=== PATIENT | female | born 1970 | race Caucasian/White ===

== ENCOUNTER 2019-10-14 16:16 | Inpatient (IN) | payer OTHER ==
[~2019-10-14] VITALS: Ht 154.9 cm; Wt 52.6 kg
[~2019-10-14 16:16] MED LIST: ASACOL HD800 MG PO; LEVOTHYROXINE50 MCG PO; OXYCODON-ACETA1 EAC2 PO; SUDAFED 12 HOU120 MG PO; ZYRTEC10 MG PO
--- NOTE | 2019-10-14 17:23 | NUR ---
NEW ADMIT TO THE FLOOR. IV STARTED IN RIGHT AC. IV BOLUS OF LR STARTED PER DOC ORDER. PT REPORTS MILD ABD PAIN, INTERMITTENT AND CRAMPING. PT REPORTS RECTAL BLEEDING WELL WITH DIARRHEA. PT A&OX4. ORIENTED PT TO ROOM AND CALL LIGHT.
--- NOTE | 2019-10-14 19:44 | NUR ---
RECEIVED REPORT FROM DAY SHIFT RN. PATIENT IS IN RESTROOM. PATIENT DENIES ANY NEEDS. CALL LIGHT IN REACH.
--- NOTE | 2019-10-14 19:57 | NUR ---
CHARGE NURSE REPORT RECEIVED NEAR 1914. PT IN BED, EYES CLOSED, FAMILY PRESENT
--- NOTE | 2019-10-14 20:20 | NUR ---
PATIENT ASSESMENT COMPLETED. BOLUS COMPLETED. PRIMARY IV FLUIDS INFUSING PER ORDER. MAG INFUSING PER ORDER. PATIENT DENIES ANY PAIN OR NAUSEA. PATIENT PROVIDED WITH BROTH PER REQUEST. FAMILY PRESENT IN ROOM. ALL QUESTIONS ANSWERED. PATIENT DENIES ANY FURTHER QUESTIONS OR CONCERNS. PATIENTS EVENING MEDICATIONS GIVEN PER ORDER. PATIENT DENIES ANY FURTHER NEEDS AT THIS TIME. CALL LIGHT IN REACH.
--- NOTE | 2019-10-14 21:09 | NUR ---
PATIENT ASSISTED TO THE RESTROOM A SBA. PATIENT WAS ABLE TO VOID AND HAVE SOFT LOOSE BM. PATIENT IS NOW BACK IN BED RESTING. POTASSIUM INFUSING PER ORDER. PATIENT DENIES ANY PAIN. NO NEEDS NOTED. CALL LIGHT IN REACH.
--- NOTE | 2019-10-14 22:12 | NUR ---
PATIENT IS RESTING IN BED. MEDICATIONS 2200 MEDICATIONS GIVEN PER ORDER. ABX AND POTASSIUM INFUSING PER ORDER. PATIENT DENIES ANY PAIN OR NAUSEA AT THIS TIME. PATIENT DENIES ANY NEEDS AT THIS TIME. CALL LIGHT IN REACH.
--- NOTE | 2019-10-14 23:27 | NUR ---
ANSWERED CALL LIGHT. 1SBA TO THE BATHROOM AND BACK TO BED. SCDS ARE BACK ON. NO OTHER NEEDS AT THIS TIME.
--- NOTE | 2019-10-15 01:52 | NUR ---
PATIENT ASSISTED TO THE RESTROOM BY TAMPER OPERATOR. PATIENT WAS ABLE TO VOID. NO BM. PATIENT IS BACK IN BED RESTING. PATIENT RATES PAIN IN HER ABD AT A 5/10. PATIENT DESCRIBES IT AN "ACHE". PATIENT GIVEN IV TYLENOL PER ORDER. VITALS TAKEN AND RECORDED BY DEZ TOMAS. PATIENTS INTAKE AND OUPUT RECORDED BY DEZ TOMAS. PATIENT DENIES ANY FURTHER NEEDS. CALL LIGHT IN REACH.
--- NOTE | 2019-10-15 02:43 | NUR ---
PATIENT IS RESTING IN BED WITH EYES CLSOED, RR 17. CALL LIGHT IN REACH.
--- NOTE | 2019-10-15 05:21 | NUR ---
PATIENT RESTED WELL THROUGHOUT THE SHIFT. PATIENT IS ON A CLEAR LIQUID DIET, TOLERATING WELL, AND NO COMPLAINTS OF NAUSEA NOTED. PATIENT IS A SBA. PATIENT HAD MULTIPLE LOOSE BMS. PATIENT IS ON CONTACT PRECATUTIONS PENDING C-DIFF LAB RESULTS. PATIENT IS ON RA. PATIENT HAS IVV INFUSING PER ORDER. PATIENT RECIEVED MAG AND POTASSIUM IV PER ORDER. PATIENT RECEIVED PRN TYLENOL X1 PRN FOR PAIN. PATIENT IS AAOX3 AND USES CALL LIGHT APPROPRIATELY.
--- NOTE | 2019-10-15 06:26 | NUR ---
PATIENT ASSISTED TO THE RESTROOM. PATIENT WAS ABLE TO VOID. PATIENT ALSO HAD LOOSE BM. PATIENTS MORNING MEDICATIONS GIVEN PER ORDER. PATIENT RATES PAIN AT A 2/10. PATIENT DENIES THE NEED FOR PAIN MEDICATION AT THIS TIME. VITALS TAKEN ADN RECORDED. INTAKE AND OUTPUT RECORDED. NO NEEDS NOTED. CALL LIGHT IN REACH.
--- NOTE | 2019-10-15 07:19 | NUR ---
REPORT RECIEVED FROM MARTA CANNON. PT AWAKE AND DENIES CONCERNS ATT. JUST FINISHED DOSE OF IV TYLENOL.
--- NOTE | 2019-10-15 08:52 | NUR ---
PT GIVEN JELLO, MORE ICE WATER AND PEPCID. PT STATES THE TYLENOL IS DOING OK WITH PAIN BUT MAYBE NEED SOMETHING ELSE SHE IS TAKING IT Q6 AND WILL RUN OUT OF LIMIT.
--- NOTE | 2019-10-15 09:00 | NUR ---
Pt. sleeping will return later or visit in am.
[2019-10-15] MEDS ORDERED: PROMETHAZINE-C473 ML PO (09:07)
--- NOTE | 2019-10-15 10:04 | NUR ---
CALLED DR WALKER REGARDING ABDOMINAL CRAMPING AFTER SMALL MORE FORMED STOOL. PT STATES THE PAIN WENT UP TO A 9 AND SHE FELT LIKE PASSING OUT. ADMINSTERED TORADOL, AND EXPLAINED TO PT.
[2019-10-15] MEDS ORDERED: SULFAZINE500 MG PO (13:31)
[2019-10-15] MEDS ORDERED: MESALAMINE DR400 MG PO (13:48)
--- NOTE | 2019-10-15 15:59 | NUR ---
PT LYING IN BED. STATES SHE FEELS A LOT BETTER. REFILLED ICE WATER. PLUGGED IN IV.
--- NOTE | 2019-10-15 17:32 | HP ---
[facility] [address], [place] [address] Signed ADMISSION DATE: 10/14/2019 REASON FOR ADMISSION: Ulcerative colitis and flare. HISTORY OF PRESENT ILLNESS: This 49-year-old white woman is well known to me from the past. She carries a longstanding diagnosis of ulcerative colitis, generally well managed with minimal intervention. Indeed, she last underwent colonoscopy by me on July 08, 2019, where she was found to have only proctitis, no evidence of generalized colitis. Pathology report confirmed mucosal edema at the cecum, right colon, transverse colon, and minimally active chronic colitis of the sigmoid and rectum. She had benefitted mainly from mesalamine 1.2 g daily in the past, but the patient had self tapered regarding her medications previously and recommendation was made to maintain mesalamine. The patient did not do so as the cost of mesalamine was rather prohibitive, more than 500 dollars a month. On that basis, a plan was outlined for azulfidine to be given, and she was cautioned by her pharmacist that it does contain sulfa and she is considered to have a sulfa allergy. The sulfa allergy predominantly was that of lower extremity rash, but no airway problems or anything else of that sort. She has seen on an urgent walk-in basis today, October 14, 2019, having had fekg-cnv-m-half of progressive inability to tolerate oral intake, lower abdominal pain and cramping, and gross blood per rectum. I conferred with pharmacist at the hospital regarding her ability to initiate azulfidine despite a prior low-grade reaction to Bactrim antibiotic more than seven years ago and a planned trial for the medication was outlined. At present, the patient is really not able to eat well at all. Has only been able to have Jell-O even during Thanksgiving several days ago, has been lightheaded, dizzy, and so on. She has not had nausea or vomiting, continues to have blood per rectum. She has a fair amount of lower abdominal pain as well. SOCIAL HISTORY: She is . She has two children, ages 16 and 12. She does a fair amount of weightlifting. She is . She lives in [place]. PAST MEDICAL HISTORY: Does include partial thyroidectomy for thyroid nodule (benign) and ulcerative colitis as described. Electronically Signed By: CARMELINA WALKER MD 10/15/19 1732 PATIENT NAME: JUAN CAMPUZANO HISTORY AND PHYSICAL DATE OF : 74 REPORT #: [id number] PHYSICIAN: CARMELINA WALKER MD PCP: CIELO MIRELES REPORT IS CONFIDENTIAL AND NOT TO BE RELEASED WITHOUT AUTHORIZATION [facility] [address], [place] [address] Signed REVIEW OF SYSTEMS: She denies any shortness of breath or chest pain. Does have lower abdominal pain and blood per rectum as described as well as diarrhea. She is thirsty and lightheaded, unable to tolerate oral intake. PHYSICAL EXAMINATION: GENERAL: A pleasant white woman, who looks to be in moderate distress at this time. VITAL SIGNS: Temperature is 99.8, pulse 125, blood pressure 100/78. NECK: Shows no thyromegaly or cervical adenopathy. Trachea is midline. Well-healed incision is noted on the neck. EYES: Mucous membranes are quite dry including her tongue. CHEST: Clear. There is no wheeze. HEART: Regular without murmur. ABDOMEN: Nondistended and generally soft. There is no focal tenderness. No tenderness in the right lower quadrant. EXTREMITIES: Show no clubbing, cyanosis, or edema. ASSESSMENT: The patient clearly has ulcerative colitis in flare. She may have other competing etiologies including infectious diarrhea and so forth. She is dehydrated and has poor ability to tolerate oral intake. She clearly needs to be admitted to the hospital. PLAN: We would directly admit to the hospital for fluid resuscitation, administration of hydrocortisone intravenously, antibiotics, and assessment of stool for pathogens. We will obtain lab studies as well. A transition to azulfidine if possible will be undertaken and medical observation in addition to reconciling her acute flare of colitis. Colonoscopy may additionally be required to assess the level of her inflammation as previously in June, it was only the rectum really, more proximal colon spared. She agrees with this approach. MD SONALI Forte/MODL /[id number] Electronically Signed By: CARMELINA WALKER MD 10/15/19 1732 PATIENT NAME: JUAN CAMPUZANO HISTORY AND PHYSICAL DATE OF : 74 REPORT #: [id number] PHYSICIAN: CARMELINA WALKER MD PCP: CIELO MIRELES REPORT IS CONFIDENTIAL AND NOT TO BE RELEASED WITHOUT AUTHORIZATION [address] [address] Signed cc: ILENE Gloria Copies: CIELO MIRELES ~ Electronically Signed By: CARMELINA WALKER MD 10/15/19 1732 PATIENT NAME: JUAN CAMPUZANO HISTORY AND PHYSICAL DATE OF : 74 REPORT #: [id number] PHYSICIAN: CARMELINA WALKER MD PCP: CIELO MIRELES REPORT IS CONFIDENTIAL AND NOT TO BE RELEASED WITHOUT AUTHORIZATION
--- NOTE | 2019-10-15 17:33 | NUR ---
PATIENT IN BED RESTING, FAMILY IN ROOM. FRESH WATER GIVEN. CALL LIGHT IN REACH. NO FURTHER NEEDS AT THIS TIME.
--- NOTE | 2019-10-15 19:10 | NUR ---
CHARGE NURSE REPORT RECEIVED. NO NEEDS AT THIS TIME.
--- NOTE | 2019-10-15 19:10 | NUR ---
IN ROOM FOR REPORT, PT IS AWAKE IN BED AND DENIES NEEDS AT THIS TIME. CALL LIGHT IS CLOSE.
--- NOTE | 2019-10-15 19:20 | NUR ---
THIS RN ASSISTING WITH IV START. PIV STARTED PER PROTOCOL, BLOOD RETURN NOTED WITH IV START. MAGNESIUM INFUSION STARTED THROUGH NEW LINE. PIV IN RAC DC'D PER PROTOCOL. GAUZE AND COBAN APPLIED. WARM BLANKET TO INFILTRATED LINE. NO ADDITIONAL REQUESTS OR COMPLAINTS AT THIS TIME. CALL LIGHT WITHIN REACH.
--- NOTE | 2019-10-15 20:28 | NUR ---
IN ROOM TO ADMINISTER MEDICATIONS AND ASSESS PT. SHE DENIES PAIN AT THIS TIME. SCDS ARE ON AND NEW IV IS INFUSING FINE. CALL LIGHT IS CLOSE.
--- NOTE | 2019-10-15 20:40 | NUR ---
PT COMPLAINED OF PAIN IN IV FROM POTASSIUM. TURNED RATE DOWN AND WILL SEE IF IT IMPROVES.
--- NOTE | 2019-10-15 23:00 | NUR ---
IN ROOM TO START FLAGYL AND ADMINISTER SOLUCORTEF. PT IS NOW RESTING WITH EYES CLOSED AND CALL LIGHT IS CLOSE.
--- NOTE | 2019-10-16 00:36 | NUR ---
PT IS RESTING WITH EYES CLOSED, RR IS EVEN AND NONLABORED. CALL LIGHT IS WITHIN REACH AND IV IS INFUSING FINE.
--- NOTE | 2019-10-16 01:32 | NUR ---
ANSWERED CALL LIGHT. SBA TO THE BATHROOM. PATIENT IS BACK IN BED.
--- NOTE | 2019-10-16 01:35 | NUR ---
PT IS AWAKE IN BED AFTER JUST GETTING UP TO THE RESTROOM. SHE DENIES ANY REACTION TO THE AZULFIDINE TAKEN IN THE EVENING. SHE DENIES OTHER NEEDS AT THIS TIME WELL AND IS NPO FOR THE SCOPE. CALL LIGHT IS CLOSE.
--- NOTE | 2019-10-16 04:29 | NUR ---
PT IS RESTING WITH EYES CLOSED, RR IS EVEN AND NONLABORED. IV IS INFUSING FINE AND CALL LIGHT IS CLOSE.
--- NOTE | 2019-10-16 06:46 | NUR ---
IN ROOM TO ADMINISTER MORNING MEDS. SHE DENIES PAIN AT THIS TIME. SBA TO RESTROOM AND BACK TO BED. CALL LIGHT IS CLOSE.
--- NOTE | 2019-10-16 06:47 | NUR ---
PT DENIED PAIN THROUGH THE NIGHT. SHE AMBULATES SBA. SHE REPORTS SOME BLOOD IN HER BMS BUT STATES IT IS GETTING BETTER. SHE ALSO REPORTS HAVING AN APPETITE. SHE IS NPO SINCE MIDNIGHT AND IS SCHEDULED FOR A SCOPE TODAY. D5LR IS INFUSING AT 125MLS/HR
--- NOTE | 2019-10-16 07:27 | NUR ---
0710: Bedside report recieved from Nayeli LOZANO. PT talking on the phone at this time. Call borden within reach.
--- NOTE | 2019-10-16 07:44 | NUR ---
PT RESTING IN HER BED AND SHE IS READY TO GO FOR HER COLONOSCOPY. SHE DENIES ANY PAIN OR NAUSEA AT THIS TIME. SHE STATES THAT HER BM THIS AM HAD A SMALL AMOUNT OF BLOOD IN HER STOOL, BUT STATES IT IS LESS THAN IT HAS BEEN.
--- NOTE | 2019-10-16 08:43 | NUR ---
10/16/19 0843 Laure Husain 0820-PATIENT ARRIVED TO PACU ON 2L NC DROWSY AROUSES TO VERBAL STIMULI LAYING LEFT LATERAL. ABDOMEN SOFT ENCOURAGED TO PASS GAS. PATIENT DENIES PAIN OR NAUSEA. PATIENT DOZES BACK TO SLEEP. RR EVEN.
--- NOTE | 2019-10-16 09:22 | NUR ---
0915: Pt returned to her room from PACU. Resport recieved from Laure LOZANO. Pt states she is doing well other than some slight cramping. Pt encouarged to try and pass the air from her colon which she states understanding. VSS. Pt's spouse into her room at this time.
--- NOTE | 2019-10-16 10:25 | NUR ---
PT JUST RETURNED TO HER BED FROM THE BR AND WAS STEADY ON HER FEET.
--- NOTE | 2019-10-16 11:24 | NUR ---
PATIENT NOW ON A LOW-FIBER DIET. STOPPED IN TO PROVIDE A QUICK REVIEW. SHE NORMALLY LIKES FRESH FRUITS AND VEGETABLES BUT HAS NOT BEEN ABLE TO TOLERATE MUCH THE PAST 3 WEEKS DUE TO [facility] FLARE. EXPLAINED THAT LOW-FIBER FOODS WILL PROVIDE LESS BULK TO ALLOW THE INTESTINES TO RECOVER A BIT. SHE HAS A HANDOUT ALREADY IN HER ROOM. PROVIDED A LOW-FIBER MENU FOR HER WHILE HERE. PROVIDED BY NAME AND OFFICE NUMBER IN CASE FURTHER QUESTIONS ARISE.
--- NOTE | 2019-10-16 12:07 | NUR ---
Pt resting in her bed and she states her pain is well controled and she tolerated her toast well and denies any new problems.
--- NOTE | 2019-10-16 13:02 | NUR ---
Pt continues resting in bed with no new complaints and is visiting with her . Pastor Fernandez now in the room speaking with the pt.
--- NOTE | 2019-10-16 13:48 | NUR ---
PT ALERT, ORIENTED AND RESTING IN BED WITH HER CRISPIN. PT ADMITTED THAT SHE HAS DEALT WITH COLITIS FOR YEARS, BUT THIS SEEMS TO BE THE WORST SO FAR. PT WAS ABLE TO HAVE TOAST EARLIER AND HOPING IT WILL STAY DOWN SO SHE CAN BE DC'D TODAY. VISITED WITH PT AND , GOOD DISCUSSION ABOUT TRYING TO ONLY FOCUSING ON WHAT WE CAN CONTROL AND LETTING THE OTHER STAFF GO. PT REQUESTED LANA, MARTA WESTBROOK WAITING TO VISIT WITH PT. GAVE PT A G.POST AND ROXANNE. I WILL FOLLOW NEEDED
--- NOTE | 2019-10-16 15:21 | NUR ---
PT RESTING IN HER BED VISITING WITH HER SPOUSE. SHE DENIES ANY PAIN OR PROBLEMS AT THIS TIME. SCD'S ON AND RUNNING AND CALL RUTH WITHIN REACH.
--- NOTE | 2019-10-16 15:56 | NUR ---
In to speak with Akanksha and her . She states she has had 3 flares of colitis since May. She works as a truck payroll and benefits analyst. Plans on going home with spouse on discharge. Denies need for DME. Was concerned about new diet of low fiber. Reviewed with pt and notified Concha riverboat captain. Concha will see Akanksha.
--- NOTE | 2019-10-16 16:05 | NUR ---
Pt in the br at this time, her spouse remains in the room and states that the pt is doing well with no new problems.
--- NOTE | 2019-10-16 17:22 | NUR ---
Pt resting in her bed and she continues to denie any problems or reactions related to her medications.
--- NOTE | 2019-10-16 18:41 | NUR ---
PT DENIES ANY PROBLEMS AND IS GETTING READY FOR A SHOWER AT THIS TIME WITH THE HELP FROM THE DECK SPECIALIST.
--- NOTE | 2019-10-16 19:27 | NUR ---
IN ROOM FOR REPORT, PT IS AWAKE IN BED AFTER FINISHING A SHOWER. SHE DENIES NEEDS AT THIS TIME. CALL LIGHT IS CLOSE.
--- NOTE | 2019-10-16 21:37 | NUR ---
IN ROOM TO ASSESS PT AND ADMINISTER MEDS. PT DENIES PAIN AT THIS TIME BUT STATES SHE HAS SOME CRAMPING AFTER USING THE RESTROOM. VS ARE WNL AND I&0S ARE GOOD. SHE REPORTS BLOOD IN HER STOOL WHICH HAS IMPROVED. SHE DENIES NEEDS AT THIS TIME. CALL LIGHT IS CLOSE.
--- NOTE | 2019-10-16 23:51 | NUR ---
PT IS RESTING WITH EYES CLOSED, RR IS EVEN AND NONLABORED. CALL LIGHT IS CLOSE.
--- NOTE | 2019-10-17 01:29 | NUR ---
ASSISTED BACK TO BED FROM RESTROOM. SHE HAD SOME MORE BLOODY LOOSE STOOL, SHE REPORT SOME CRAMPING PAIN BUT STATES IT GOES AWAY ON IT'S OWN. SHE DENIES FURTHER NEEDS AT THIS TIME. CALL LIGHT IS CLOSE.
--- NOTE | 2019-10-17 03:45 | NUR ---
PT UP TO THE RESTROOM AND BACK TO BED. SMALL AMOUNT OF LIQUID STOOL WITH BLOOD NOTED IN TOILET. NEW IV BAG IS INFUSING AND PT DENIES NEEDS AT THIS TIME. CALL LIGHT IS CLOSE.
--- NOTE | 2019-10-17 05:02 | NUR ---
PT DENIED PAIN THROUGH THE NIGHT WITH THE EXCEPTION OF SOME CRAMPING AFTER HAVING BMS. SHE CONTINUES TO HAVE SOME BLOOD IN HER STOOL AND HAD COUPLE OF BMS THROUGH THE NIGHT. SHE AMBULATES SBA/IND. SHE IS TOLERATING A LOW FIBER DIET. SHE HAS D5LR INFUSING AT 125MLS/HR.
--- NOTE | 2019-10-17 06:18 | NUR ---
IN ROOM TO ADMINISTER SOLUCORTEF. PT DENIES PAIN AND ANY NEEDS AT THIS TIME. CALL LIGHT IS CLOSE AND IV IS INFUSING FINE.
--- NOTE | 2019-10-17 07:20 | NUR ---
REPORT RECIEVED FROM ELECTRON GUN ASSEMBLER RN. PT IN BED AWAKE. DENIES PAIN OR NEEDS. CALL LIGHT IN REACH.
--- NOTE | 2019-10-17 08:45 | NUR ---
ASSESSMENT COMPLETED. LUNGS CLEAR. BOWEL TONES HYPERACTIVE. PT DENEIS ABDOMINAL DISCOMFORT OR PAIN. 1 BM THIS AM, STILL WITH SOME REDNESS. PT REPORTS SOME CRAMPING AFTER BOWEL MOVEMENTS BUT REPORTS SHE IS FEELING "MUCH BETTER".CALL LIGHT IN REACH. DENIES FURTHER NEEDS.
--- NOTE | 2019-10-17 09:20 | NUR ---
IV SITE INFILTRATED. DR WALKER NOTIFIED. ORDERS TO DC. OKAY TO LEAVE NO IV ACCESS. CATH INTACT. PT TOLERATED WELL.
--- NOTE | 2019-10-17 12:40 | NUR ---
PT OUT AMBULATING THE HALLS INDEPENDENTLY. KOKI HANNA.
--- NOTE | 2019-10-17 13:28 | NUR ---
PT AMBULATING IN HALLWAY WITH CRISPIN, WAITING FOR DC LATER THIS PM. SHE IS FEELING BETTER, GAVE A BLESSING, WILL FOLLOW NEEDED
--- NOTE | 2019-10-17 16:43 | NUR ---
PT UP IN CHAIR. MEDICATIONS GIVEN. DENEIS PAIN/NAUSEA. UP AMBULATING WELL. REPORTS DIARRHEA HAS DECREASED WELL PAIN. DENIES NEEDS. CALL LIGHT IN REACH.
[2019-10-17] MEDS ORDERED: TYLENOL EXTRA500 MG PO (17:11)
[2019-10-17] MEDS ORDERED: SULFASALAZINE500 MG PO (17:11)
[2019-10-17] MEDS ORDERED: METRONIDAZOLE250 MG PO (17:11)
[2019-10-17] MEDS ORDERED: PREDNISONE20 MG PO (17:12)
[2019-10-17] MEDS ORDERED: PROTONIX40 MG PO (17:13)
--- NOTE | 2019-10-17 17:45 | NUR ---
DR WALKER IN TO ROUND ON PT. PLAN OF CARE DISCUSSED..
--- NOTE | 2019-10-17 18:00 | NUR ---
DISCHARGE INSTRUCTIONS PROVIDED. PT WITH NO QUESTIONS. CHIP IN TO DISCUSS NEW MEDICATIONS.
--- NOTE | 2019-10-18 13:49 | PATH ---
[facility] [address] [place], [place] [address] Signed SPECIMEN(S): A TRANSVERSE SPECIMEN(S): B SPLENIC FLEXURE SPECIMEN(S): C SIGMOID SPECIMEN(S): D COLON POLYP AT 30 CM SPECIMEN(S): E RECTUM SPECIMEN SOURCE: A. TRANSVERSE B. SPLENIC FLEXURE C. SIGMOID D. COLON POLYP AT 30 CM E. RECTUM CLINICAL HISTORY: Colitis. Post-op: Severe ulcerative colitis. MICROSCOPIC DESCRIPTION: Histologic sections of all submitted blocks are examined by light microscopy. These findings, together with the gross examination, support the pathologic diagnosis. FINAL PATHOLOGIC DIAGNOSIS: A. Transverse colon, biopsy: - Mild chronic active colitis, negative for dysplasia. B. Splenic flexure, biopsy: - Mild chronic active colitis, negative for dysplasia. C. Sigmoid colon, biopsy: - Moderate chronic active colitis, negative for dysplasia. D. Colon polyp at 30 cm, biopsy: - Moderate chronic active colitis, negative for dysplasia. E. Rectum, biopsy: - Mild to moderate chronic active colitis, negative for dysplasia. COMMENT: The histologic features are consistent with the history of inflammatory bowel disease (ulcerative colitis). JVR:[facility]:C2NR GROSS DESCRIPTION: Five specimens are received in five containers, labeled "JL." A. The specimen, labeled "JL, #1," is received in formalin and consists of two troncoso soft tissue fragments that measure 0.2 and 0.3 cm in greatest dimension. PATIENT NAME: JUAN CAMPUZANO PATHOLOGY DATE OF : 74 REPORT #: [id number] PHYSICIAN: CHIRAG CARDONA PCP: CIELO MIRELES REPORT IS CONFIDENTIAL AND NOT TO BE RELEASED WITHOUT AUTHORIZATION [facility] [address] [place], [place] [address] Signed The specimen is entirely submitted in cassette (A1). B. The specimen, labeled "JL, #2," is received in formalin and consists of one troncoso soft tissue fragment that measures 0.3 cm in greatest dimension. The specimen is entirely submitted in cassette (B1). C. The specimen, labeled "JL, #3," is received in formalin and consists of three troncoso soft tissue fragments that measure 0.3-0.4 cm in greatest dimension. The specimen is entirely submitted in cassette (C1). D. The specimen, labeled "JL, #4," is received in formalin and consists of two troncoso soft tissue fragments that measure 0.1 and 0.4 cm in greatest dimension. The specimen is entirely submitted in cassette (D1). E. The specimen, labeled "JL, #5," is received in formalin and consists of two troncoso soft tissue fragments that measure 0.3 and 0.3 cm in greatest dimension. The specimen is entirely submitted in cassette (E1). FB (under the direct supervision of a pathologist) The Gross Description was prepared using a voice recognition system. The report was reviewed for accuracy; however, sound-alike word errors, addition and/or deletions may occur. If there is any question about this report, please contact Client Services. PERFORMING LABORATORY: The technical component was performed by [facility], [address] [place] [id number] (Engineering And Scientific Programmer: Meeta Wagner MD; CLIA# [id number]). Professional interpretation was performed by [facility], [place] [address] (Engineering And Scientific Programmer: Ramses Quintero M.D.). Diagnostician: Ramses Quintero MD Pathologist Electronically Signed 10/18/2019 Copies: ~ PATIENT NAME: JUAN CAMPUZANO [facility] DATE OF : 74 REPORT #: [id number] PHYSICIAN: CHIRAG CARDONA PCP: CIELO MIRELES REPORT IS CONFIDENTIAL AND NOT TO BE RELEASED WITHOUT AUTHORIZATION
--- NOTE | 2019-10-18 16:20 | OR ---
[facility] [address], [place] [address] Signed DATE OF OPERATION: 10/16/2019 SURGEON: Carmelina Walker MD PREOPERATIVE DIAGNOSIS: Ulcerative colitis and flare. POSTOPERATIVE DIAGNOSIS: Ulcerative colitis and flare. PROCEDURE: Colonoscopy beyond splenic flexure with biopsies. ANESTHESIA: Intravenous sedation, fentanyl 150 mcg, Versed 7 mg. INDICATION: This 49-year-old white woman is a patient of ILENE Gloria, and well known to me from the past. She is known to have a longstanding history of ulcerative colitis. She has been maintained with mesalamine in the past and tapered herself off medication over time and has been doing relatively well. 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 With sparing of the colon proximally and biopsies affirming that. More proximal colon did have edema, however. She was prescribed mesalamine suppository, which was of no benefit and mesalamine orally administered was prescribed. However, she did not fill it as it was prohibitively expensive at over $500 a month. She recently, in the past 2 weeks, has had progressive symptoms of diarrhea, blood per rectum, dehydration, and so forth. She was directly admitted from my office on October 14, 2019, underwent aggressive fluid resuscitation, administration of IV steroids, IV Flagyl, electrolyte correction, including that of hypokalemia and is improved. Initiation of azulfidine has been undertaken despite a sulfa allergy and she thus far has shown no sign of cross-reactivity or allergic symptoms from that. She is feeling much better. She is admitted at this time to undergo colonoscopy to assess the severity and extent of colitis. She understands as does her the risks of bleeding, infection, perforation, and so on. FINDINGS: Severe colitis was noted. This included the rectum, sigmoid, left colon, and markedly less and improved and nearly normal-appearing transverse colon. The mucosa was denuded in the sigmoid in patches with pseudopolyp formation as well. Electronically Signed By: CARMELINA WALKER MD 10/18/19 1620 PATIENT NAME: JUAN CAMPUZANO OPERATIVE REPORT DATE OF : 74 REPORT #: [id number] PHYSICIAN: CARMELINA WALKER MD PCP: CIELO MIRELES REPORT IS CONFIDENTIAL AND NOT TO BE RELEASED WITHOUT AUTHORIZATION [facility] [address], [place] [address] Signed DESCRIPTION OF PROCEDURE: The patient was brought to the endoscopy suite and placed in lateral decubitus position. She was given intravenous sedation to the point of slurred speech and nystagmus with full cardiopulmonary monitoring. Digital rectal examination showed residual liquid gelatinous type stool. A formal bowel prep had not been undertaken. The Olympus video colonoscope was passed in the rectum and with irrigation, mucosa could be evaluated showing ulcerations and marked inflammatory change and edema. With careful manipulation, the scope was advanced throughout the sigmoid showing marked inflammatory changes, pseudomembranes, and so on. Notably, C difficile had already been assessed and was negative. The scope was advanced beyond the splenic flexure of the transverse colon where normal-appearing mucosa was noted. Biopsies were taken there and further advancement of scope was not possible due to obstructing stool in the right transverse colon. Having the information needed, the scope was then withdrawn and examination allowed for further examination of the mucosa. Denuded mucosa was noted especially in the left and sigmoid area with pseudopolyp formation. One personal service representative pseudopolyp was biopsied. Biopsies were taken throughout the colon including the rectum. The scope was removed. The patient was taken to recovery room in good condition. CONCLUDING DIAGNOSIS: Ulcerative colitis and flare, severe. PLAN: We will continue steroids and transition to oral formulations. Continue with azulfidine, which is affordable for her. Advance to a full liquid low-fiber diet. Maintain Flagyl. MD SONALI Forte/JENSENL /[id number] cc: ILENE Gloria Copies: CIELO MIRELES Electronically Signed By: CARMELINA WALKER MD 10/18/19 1620 PATIENT NAME: JUAN CAMPUZANO OPERATIVE REPORT DATE OF : 74 REPORT #: [id number] PHYSICIAN: CARMELINA WLAKER MD PCP: CIELO MIRELES REPORT IS CONFIDENTIAL AND NOT TO BE RELEASED WITHOUT AUTHORIZATION [facility] [address] [place] [address] [place], [place] [address] Signed ~ Electronically Signed By: CARMELINA WALKER MD 10/18/19 1620 PATIENT NAME: TATIANNATASIAJUAN CAYDEN OPERATIVE REPORT DATE OF : 74 REPORT #: [id number] PHYSICIAN: CARMELINA WALKER MD PCP: CIELO MIRELES [facility] REPORT IS CONFIDENTIAL AND NOT TO BE RELEASED WITHOUT AUTHORIZATION
--- NOTE | 2019-10-18 16:20 | DS ---
[facility] [address] [place], [place] [address] Signed ADMISSION DATE: 10/14/2019 DISCHARGE DATE: 10/17/2019 REASON FOR ADMISSION: This 49-year-old white woman, who is well known to me from the past and carries a longstanding diagnosis of ulcerative colitis. Generally well managed with minimal intervention. She last underwent colonoscopy by me on July 08, 2019. She is found only to have a flare of proctitis. No evidence of generalized colitis. Pathology report confirmed mucosal edema at the cecum, right colon, transverse colon, and minimally active chronic colitis of sigmoid and rectum. She generally had benefited mainly from mesalamine use in the past, but the patient self tapered regarding her medication as she was unable to afford it costing nearly $500 a month. A plan was outlined for a sulfadine to be given, but she was cautioned by a pharmacist that did contain sulfa medication, she did not start that either. She was seen on an urgent walk-in basis on 10/14 in my office having a week and a half of progressive inability to tolerate oral intake, lower abdominal pain, cramping, gross blood per rectum. Clinical examination showed her to be quite dehydrated and highly probable to have an acute flare of colitis and on that basis, it was a direct admit for further management in the hospital. PERTINENT PHYSICAL EXAMINATION: GENERAL: Showed a pleasant white woman, who looked to be in moderate distress. VITAL SIGNS: Temperature is 99.8, pulse 125, blood pressure 100/78. NECK: Showed no thyromegaly or cervical adenopathy. Trachea is midline. Mucous membranes are quite dry including the tongue. HEART: Regular without murmur. ABDOMEN: Nondistended, generally soft. There is no focal tenderness. EXTREMITIES: Show no clubbing, cyanosis, or edema. HOSPITAL COURSE: The patient was admitted and lab studies obtained, which included a white count noted to be 10.7, hematocrit of 39.3, platelet count of 441,000. Additionally, electrolytes showed a potassium is 2.7, chloride of 94, creatinine of 0.78, and a C-reactive protein of 160. Albumin was low at 2.7. Amylase normal at 14. She was started on intravenous steroid hydrocortisone, gastric protection with Prevacid intravenously administered in DVT prophylaxis given the increased risk of deep venous thrombosis in patients with inflammatory bowel disease. Fluid resuscitation was aggressive and electrolyte repletion undertaken as well. She did have improvement, but still had some blood per rectum. Lab studies were obtained of the stool to assess for Electronically Signed By: CARMELINA WALKER MD 10/18/19 1620 PATIENT NAME: JUAN CAMPUZANO DISCHARGE SUMMARY DATE OF : 74 REPORT #: [id number] PHYSICIAN: CARMELINA WALKER MD PCP: CIELO MIRELES REPORT IS CONFIDENTIAL AND NOT TO BE RELEASED WITHOUT AUTHORIZATION [address] [address] Signed infectious causes including stool for white cells, which was quite elevated and ova and parasites, which was negative. C difficile determination was negative. On the basis of her clinical findings being far worse than had that she had last summer, she did undergo colonoscopy on a non-prepped bowel, this demonstrated quite severe ulcerative colitis of the rectum, sigmoid, left colon, but much improvement of the transverse colon consistent with clinical history. She was transitioned to oral steroids prednisone 40 mg daily, continue with a Silvadene, which was initiated under observation without adverse effect despite prior sulfa allergy and maintain with gastric protection measures. Additionally, she had been given Flagyl intravenously and was transitioned to oral Flagyl during course of hospitalization. She was advanced in her diet to a low-fiber diet, which she tolerated well. By the time of discharge, she is markedly improved with the current regimen. Additionally, lab study showed her C-reactive protein to have decreased to 23.1, which is a remarkable improvement. Our plan outlined going forward will be prednisone 40 mg daily for two weeks, tapering 10 mg weekly, continued use of a Silvadene 500 mg p.o. q.i.d., Protonix 40 mg p.o. daily, Flagyl 250 p.o. t.i.d. x5 days, and Tylenol 1000 mg p.o. q.6 hours as needed for pain. FOLLOWUP PLAN: She is return to see me in approximately a month. We will organize further management from there. DISCHARGE DIAGNOSES: 1. Ulcerative colitis in flare (severe). 2. Status post colonoscopy with biopsy marked and severe ulcerative colitis, rectum, sigmoid left colon with sparing of transverse colon and proximal. 3. History of partial thyroidectomy for thyroid nodule (benign). MD SONALI Forte/MODL /[id number] Electronically Signed By: CARMELINA WALKER MD 10/18/19 1620 PATIENT NAME: JUAN CAMPUZANO DISCHARGE SUMMARY DATE OF : 74 REPORT #: [id number] PHYSICIAN: CARMELINA WALKER MD PCP: CIELO MIRELES REPORT IS CONFIDENTIAL AND NOT TO BE RELEASED WITHOUT AUTHORIZATION [facility] [address] [place] [address] Signed cc: ILENE Gloria Copies: CIELO MIRELES ~ Electronically Signed By: CARMELINA WALKER MD 10/18/19 1620 PATIENT NAME: JUAN CAMPUZANO DISCHARGE SUMMARY DATE OF : 74 REPORT #: [id number] PHYSICIAN: CARMELINA WALKER MD PCP: CIELO MIRELES REPORT IS CONFIDENTIAL AND NOT TO BE RELEASED WITHOUT AUTHORIZATION
== END 2019-10-17 18:00 | disposition home or self-care (01) | DRG 387 ==
LOC: MS 16:16
PROVIDERS: ADMIT Surgery
PROC: 0DBL8ZX Excision of Transverse Colon, Via Natural or Artificial Opening Endoscopic, Diagnostic (ICD-10-PCS; 2019-10-16)
PROC: 0DBN8ZX Excision of Sigmoid Colon, Via Natural or Artificial Opening Endoscopic, Diagnostic (ICD-10-PCS; 2019-10-16)
PROC: 0DBP8ZX Excision of Rectum, Via Natural or Artificial Opening Endoscopic, Diagnostic (ICD-10-PCS; principal; 2019-10-16 08:00)
DX: K51.50 Left sided colitis without complications (principal); E86.0 Dehydration; E87.6 Hypokalemia; Z79.899 Other long term (current) drug therapy; Z88.2 Allergy status to sulfonamides; Z88.0 Allergy status to penicillin; Z88.1 Allergy status to other antibiotic agents
CPT/HCPCS: 36415; 80048; 80053; 82150; 82247; 82465; 83615; 83735; 84100; 84478; 84550; 85025; 86140; 87177; 87205; 87209; 87493; 99153; G0500; J0131; J1720; J1885; J2250; J3010; J3475; J3480; J7060; J7121; J7512

== ENCOUNTER 2024-03-04 07:00 | Day surgery (SDC) | payer OTHER ==
[~2024-03-04] VITALS: Ht 154.9 cm; Wt 57.7 kg
[~2024-03-04 07:00] MED LIST changes: +IBLOOD GLUCOSE TEST STRIP 1 EA TEST VI PRN; +LACTATED RINGER'S 1,000 ML IV SCH; +LIDOCAINE HCL 1% 5 ML SDV INJ ONE; +MESALAMINE DR400 MG PO; +METRONIDAZOLE250 MG PO; +MIDAZOLAM HCL 5 MG/5 ML VIAL IV PRN; +PREDNISONE20 MG PO; +PROMETHAZINE-C473 ML PO; +PROTONIX40 MG PO; +SULFASALAZINE500 MG PO; +SULFAZINE500 MG PO; +TYLENOL EXTRA500 MG PO; +fentaNYL citrate 100 MCG/2 ML VIAL IV PRN
[2024-03-04 07:19] VITALS: BP 123/71
[2024-03-04] MEDS ORDERED: PROBIOTIC250 MG PO (07:33)
[2024-03-04] MEDS ORDERED: MESALAMINE DR400 MG PO (07:33)
[2024-03-04] MEDS ORDERED: fentaNYL citrate 100 MCG/2 ML VIAL ONE ×2 (08:12→08:33)
[2024-03-04] MEDS ORDERED: MIDAZOLAM HCL 5 MG/5 ML VIAL ONE ×2 (08:13→08:37)
--- NOTE | 2024-03-04 08:58 | NUR ---
03/04/24 0858 Opal Murray 0854- PT ARRIVES TO PACU AWAKE AND TALKING. RESP EVEN AND UNLABORED. OXYGEN SAT HIGH 90'S TO 100% ON 2L VIA CO2 NC. PT REPORTS NO PAIN OR NAUSEA. PT FALLS TO SLEEP EASILY WHEN NOT BEING TALKED TO. 0857- PT PASSING FLATUS.
[2024-03-04 09:19] VITALS: BP 115/78
--- NOTE | 2024-03-05 08:37 | OR ---
[facility] [address], [place] [address] Signed DATE OF OPERATION: 03/04/2024 SURGEON: Carmelina Walker MD PREOPERATIVE DIAGNOSIS: Longstanding history of ulcerative colitis (diagnosis 2000). POSTOPERATIVE DIAGNOSES: [id number] inflammatory changes of sigmoid and rectum with probable pseudo polyps of sigmoid. PROCEDURES: 1. Total colonoscopy to cecum with random biopsies. 2. Cold morcellation polypectomy x4 at sigmoid. ANESTHESIA: Intravenous sedation; fentanyl 150 mcg and Versed 6 mg. INDICATION: This 53-year-old white woman is a patient of ILENE Gloria. She is known to me from the past having been diagnosed with ulcerative colitis in 2000. Currently is on a regimen of mesalamine 400 mg p.o. b.i.d. (800 mg total), which keeps her symptoms in good control. In general terms, she maintains excellent health otherwise. She last underwent colonoscopy in 2019 at time of flare of her ulcerative colitis. She is admitted at this time to undergo surveillance colonoscopy, understand the risk of bleeding, infection, and perforation. FINDINGS: The prep was quite good. Complete colonoscopy was undertaken of the cecum without question. Appendiceal orifice was easily identified. There appeared to be no significant inflammation of the colon down to the mid descending colon. The sigmoid and rectum had mild inflammatory change and probable pseudopolyps of the sigmoid which were excised. There were no other findings of note. PROCEDURE IN DETAIL: The patient was brought to the endoscopy suite and placed in the lateral decubitus position given intravenous sedation to the point of slurred speech and nystagmus. Digital rectal examination was normal. An Olympus video colonoscope was passed in the rectum and manipulated throughout the Electronically Signed By: CARMELINA WALKER MD 03/05/24 0837 PATIENT NAME: JUAN CAMPUZANO OPERATIVE REPORT DATE OF : 74 REPORT #: [id number] PHYSICIAN: CARMELINA WALKER MD PCP: CIELO MIRELES REPORT IS CONFIDENTIAL AND NOT TO BE RELEASED WITHOUT AUTHORIZATION [facility] [address], [place] [address] Signed colon noting inflammatory changes, which were mild of the rectum and sigmoid. There were pseudopolyps of the sigmoid. The scope was advanced ultimately to the cecum. The ileocecal valve and appendiceal orifice were normal. The mucosa of the cecum appeared essentially normal. Biopsies were taken of the cecum as well as the hepatic flexure upon withdrawal of scope and the left colon as well. Upon entry to the sigmoid were the polypoid lesions, which were most likely pseudopolyps from past inflammatory changes. These were largely excised with cold morcellation technique, four in total were removed. There were several more. Further withdrawal allowed for biopsy of the rectum which continued to show mild inflammatory change. The scope was removed. The patient was taken to recovery room in good condition. CONCLUDING DIAGNOSIS: Minimal inflammatory changes of sigmoid and rectum, probable pseudopolyps of sigmoid and more proximal colon normal. PLAN: Would recommend continue with mesalamine 400 mg p.o. b.i.d., which appears to clinically hold her symptoms in check. We will have her see us back in one year or sooner if she should have a flare or other problems. Carmelina Walker MD JM/MODL /[id number] cc: ILENE Gloria Copies: CIELO MIRELES ~ Electronically Signed By: CARMELINA WALKER MD 03/05/24 0837 PATIENT NAME: JUAN CAMPUZANO OPERATIVE REPORT DATE OF : 74 REPORT #: [id number] PHYSICIAN: CARMELINA WALKER MD PCP: CIELO MIRELES REPORT IS CONFIDENTIAL AND NOT TO BE RELEASED WITHOUT AUTHORIZATION
--- NOTE | 2024-03-08 10:45 | PATH ---
[facility] [address] [place] [address] Signed SPECIMEN(S): A CECUM BIOPSY SPECIMEN(S): B HEPATIC FLEXURE BIOPSY SPECIMEN(S): C SPLENIC FLEXURE BIOPSY SPECIMEN(S): D COLON POLYPS, 30 CM SPECIMEN(S): E SIGMOID BIOPSY SPECIMEN(S): F RECTUM BIOPSY SPECIMEN SOURCE: A. CECUM BIOPSY B. HEPATIC FLEXURE BIOPSY C. SPLENIC FLEXURE BIOPSY D. COLON POLYPS, 30 CM E. SIGMOID BIOPSY F. RECTUM BIOPSY CLINICAL HISTORY: Pre: History of ulcerative colitis. Post: Probable pseudopolyps, mild distal colitis. FINAL PATHOLOGIC DIAGNOSIS: A. Cecum, biopsy: - Colonic mucosa with no significant pathologic changes B. Colon, hepatic flexure, biopsy: - Colonic mucosa with no significant pathologic changes C. Colon, splenic flexure, biopsy: - Colonic mucosa with no significant pathologic changes D. Colon, 30 cm, polypectomies: - Colonic mucosa with prominent lymphoid aggregates E. Colon, sigmoid, biopsy: - Colonic mucosa with mild chronic inactive colitis F. Rectum, biopsy: - Colonic mucosa with mild chronic inactive colitis MICROSCOPIC EXAMINATION: Histologic sections of all submitted blocks are examined by light microscopy. These findings, together with the gross examination, support the pathologic diagnosis. GROSS DESCRIPTION: A. The specimen, labeled and designated "Bowling, " and designated on the requisition "cecum biopsy," is received in formalin and consists of two PATIENT NAME: JUAN BOWLING PATHOLOGY DATE OF : 74 REPORT #: [id number] PHYSICIAN: CHIRAG CARDONA PCP: CIELO MIRELES REPORT IS CONFIDENTIAL AND NOT TO BE RELEASED WITHOUT AUTHORIZATION [facility] [address] [place], [place] [address] Signed fragments of soft troncoso tissue that are up to 0.7 cm in greatest dimension. Entirely submitted in (A1). B. The specimen, labeled and designated "Bowling, " and designated on the requisition "hepatic flexure biopsy," is received in formalin and consists of two fragments of soft troncoso tissue that are up to 0.3 cm in greatest dimension. Entirely submitted in (B1). C. The specimen, labeled and designated "Bowling, " and designated on the requisition "splenic flexure biopsy," is received in formalin and consists of two fragments of soft troncoso tissue that are up to 0.4 cm in greatest dimension. Entirely submitted in (C1). D. The specimen, labeled and designated "Dash, colon polyp at 30 cm," is received in formalin and consists of seven troncoso soft tissue fragments, ranging from 0.1-0.2 cm. Entirely submitted in (D1). E. The specimen, labeled and designated "Bowling, sigmoid biopsy," is received in formalin and consists of three troncoso soft tissue fragments, ranging from 0.1-0.2 cm. Entirely submitted in (E1). F. The specimen, labeled and designated "Bowling, rectum biopsy," is received in formalin and consists of four troncoso soft tissue fragments, ranging from 0.1-0.4 cm. Entirely submitted in (F1). VB (under the direct supervision of a pathologist) The Gross Description was prepared using a voice recognition system. The report was reviewed for accuracy; however, sound-alike word errors, addition and/or deletions may occur. If there is any question about this report, please contact Client Services. ADDITIONAL NOTES: Immunohistochemical and/or in situ hybridization studies if performed in this case included appropriate positive controls that reacted as expected. This test was developed and its performance characteristics determined by [facility]. It has not been cleared or approved by the U.S. Food and Drug Administration. The FDA has determined that such clearance or approval is not necessary. This test is used for clinical purposes. It should not be regarded as investigational or for research. [facility] is certified under the Clinical Laboratory Improvement Amendments of 1988 (CLIA) as qualified to perform high complexity clinical laboratory testing. PERFORMING LABORATORY: Technical component was performed by [facility], [address] [place] [id number] (CLIA# [id number]). Professional interpretation was PATIENT NAME: JUAN BOWLING PATHOLOGY DATE OF : 74 REPORT #: [id number] PHYSICIAN: CHIRAG CARDONA PCP: CIELO MIRELES REPORT IS CONFIDENTIAL AND NOT TO BE RELEASED WITHOUT AUTHORIZATION [facility] [address] [facility] [place] [address] Signed performed by [facility], [address] [place] [id number] (CLIA#: [id number]). Diagnostician: David Del Rio MD Pathologist Electronically Signed 03/08/2024 Copies: ~ PATIENT NAME: JUAN BOWLINGN PATHOLOGY DATE OF : 74 REPORT #: [id number] PHYSICIAN: CHIRAG PATHOLOGY PCP: CIELO MIRELES REPORT IS CONFIDENTIAL AND NOT TO BE RELEASED WITHOUT AUTHORIZATION
== END 2024-03-04 09:26 | disposition home or self-care (01) ==
LOC: DS 07:00 → OPS 07:00 → DS 08:30 → OPS 08:30
PROVIDERS: ATTEND Surgery
PROC: 0DBL8ZX Excision of Transverse Colon, Via Natural or Artificial Opening Endoscopic, Diagnostic (ICD-10-PCS; 2024-03-04)
PROC: 0DBP8ZX Excision of Rectum, Via Natural or Artificial Opening Endoscopic, Diagnostic (ICD-10-PCS; 2024-03-04)
PROC: 0DBH8ZX Excision of Cecum, Via Natural or Artificial Opening Endoscopic, Diagnostic (ICD-10-PCS; principal; 2024-03-04 08:30)
DX: Z12.11 Encounter for screening for malignant neoplasm of colon (principal); K52.9 Noninfective gastroenteritis and colitis, unspecified; K63.5 Polyp of colon; Z88.2 Allergy status to sulfonamides; Z88.8 Allergy status to other drugs, medicaments and biological substances; Z90.09 Acquired absence of other part of head and neck
CPT/HCPCS: 84703; 99153; G0500; J2250; J3010; J7121